=== PATIENT | male | born 1935 | race Native Hawaiian/Other Pacific Islander ===

== ENCOUNTER → 2017-01-12 | Outpatient (CLI) | payer MEDICARE, OTHER ==
[~2017-01-12] MED LIST: ASPI-1132 PO; ATOR20TA86 PO; CARV6.2579 PO; GLIP10 PO
== END | disposition home or self-care (01) ==
LOC: RADMN 13:40
PROVIDERS: ATTEND Internal Medicine
DX: I67.2 Cerebral atherosclerosis (principal); G31.89 Other specified degenerative diseases of nervous system; I63.8 Other cerebral infarction; I65.29 Occlusion and stenosis of unspecified carotid artery
CPT/HCPCS: 70450